=== PATIENT | male | born 1995 | race Caucasian/White ===

== ENCOUNTER 2016-08-06 11:52 | Emergency (ER) | payer BC ==
[~2016-08-06 11:52] MED LIST: ALBUTEROL17 GM INH; NO HOME MEDS; PROAIR HFA8.5 GM INH; ZITHROMAX250MG Z-PAK PO
[2016-08-06 13:27] LABS: URINE BILIRUBIN NEGATIVE (NEG); URINE BLOOD NEGATIVE (NEG); URINE GLUCOSE (UA) NEGATIVE (NEG); URINE KETONE MODERATE (NEG); URINE LEUKOCYTE ESTERASE NEGATIVE (NEG); URINE NITRITE NEGATIVE (NEG); URINE PROTEIN NEGATIVE (NEG)
[2016-08-06 13:37] LABS: URINE APPEARANCE CLEAR; URINE COLOR YELLOW
[2016-08-06 14:07] LABS: BASO % 0.1 % (0-2); EOS % 0.6 % (0-7); HCT-HEMATOCRIT 40.9 % (36.0-53.5); HGB-HEMOGLOBIN 13.6 gm/dl (13.5-17.0); IMMATURE GRANULOCYTES ABSOLUTE 0.01 tho/cmm (0-0.03); IMMATURE GRANULOCYTES PERCENT 0.1 % (0-0.3); LYMPH % 5.5 % (20-45); LYMPH ABSOLUTE COUNT 0.4 tho/cmm (0.8-4.5); MCH (MEAN CORPUSCULAR HGB) 29.2 pg (28.0-32.0); MCHC MEAN CORPUSCULAR HGB CONC 33.3 % (32.0-36.0); MEAN PLATELET VOLUME 10.6 cmc (9.4-12.4); MONO % 5.9 % (0-12); MONOCYTE ABSOLUTE COUNT 0.4 tho/cmm (0.0-1.2); NEUTROPHIL ABSOLUTE COUNT 6.4 tho/cmm (1.6-8.0); NEUTROPHIL-AUTOMATED 6.4 tho/cmm (1.6-8.0); NEUTROPHILS % 87.8 % (40-80); PLATELET COUNT 199 tho/cmm (150-450); RED BLOOD COUNT 4.65 mil/cmm (4.40-5.70); RED CELL DISTRIBUTION WIDTH 12.4 % (12.4-16.4); WHITE BLOOD COUNT 7.3 tho/cmm (4.0-10.0)
[2016-08-06 14:25] LABS: ALB/GLOB RATIO 1.3 (0.8-2.0); ALKALINE PHOSPHATASE 70 U/L (60-225); ALT/SGPT 20 U/L (12-78); AMYLASE 62 U/L (20-90); ANION GAP 10 mmol/L (0-20); AST/SGOT 19 U/L (10-40); BLOOD UREA NITROGEN 18 mg/dl (6-24); CALCIUM 8.6 mg/dl (8.5-10.5); CARBON DIOXIDE-VENOUS 28 mmol/L (22-32); CHLORIDE 108 mmol/l (96-110); CREATININE 0.99 mg/dl (0.60-1.30); GLUCOSE 97 mg/dL (70-110); LIPASE 74 U/L (73-393); POTASSIUM 3.9 mmol/L (3.7-5.1); SODIUM 142 mmol/L (135-145); eGFR VALUE FOR BLACK >90 mL/Min
[2016-08-06] MEDS ORDERED: PRILOSEC OTC20 M1 PO (15:19)
[2016-08-06] MEDS ORDERED: ZOFRAN ODT4 MG PO (15:19)
== END 2016-08-06 15:51 ==
LOC: EDMED 11:52
PROVIDERS: Emergency Medicine
DX: K21.9 Gastro-esophageal reflux disease without esophagitis (principal); J45.909 Unspecified asthma, uncomplicated; Z88.0 Allergy status to penicillin; Z79.51 Long term (current) use of inhaled steroids; Z98.890 Other specified postprocedural states
CPT/HCPCS: C9113; J2405; J7030; Q9967